=== PATIENT | female | born 1995 | race American Indian/Alaskan Native ===

== ENCOUNTER 2019-01-19 15:34 | Outpatient (CLI) | payer MEDICAID ==
[2019-01-19 16:05] VITALS: BP 123/71
[2019-01-19 17:00] LABS: Bacteria,Urine 1+ /HPF (Negative); Bilirubin,Urine NEG (Negative); Blood,Urine SM (Negative); Color,Urine Yellow (Yellow); Mucus,Urine 2+ /HPF; Protein,Urine <15 mg/dL mg/dL (Negative); Urobilinogen,Urine < 2.0 mg/dL (<2.0)
[2019-01-19] MEDS ORDERED: TYLENOL PO ONE (17:24)
[2019-01-19] MEDS: VISTARIL ONE ×2 (17:33→17:38)
[2019-01-19] MEDS: VISTARIL PO PRN ×2 (17:34→17:40)
== END 2019-01-19 17:51 | disposition home or self-care (01) ==
LOC: TRG 15:34
PROVIDERS: ATTEND Obstetrics & Gynecology
DX: O47.03 False labor before 37 completed weeks of gestation, third trimester (principal); O99.513 Diseases of the respiratory system complicating pregnancy, third trimester; J45.909 Unspecified asthma, uncomplicated; Z3A.33 33 weeks gestation of pregnancy
CPT/HCPCS: 59025; 81001; Q0177